=== PATIENT | female | born 1960 | race Caucasian/White ===

== ENCOUNTER 2021-08-29 09:23 | Emergency (ER) | payer BC ==
--- NOTE | 2021-08-29 10:40 | EDM.PDOC ---
ED HPI GENERAL MEDICAL PROBLEM - General Chief Complaint: Lower Extremity Injury/Pain Stated Complaint: POSSIBLE BLOOD CLOT Time Seen by Provider: 08/29/21 09:30 Source of Information: Reports: Patient History Limitations: Reports: No Limitations - History of Present Illness INITIAL COMMENTS - FREE TEXT/NARRATIVE: Patient presented to the ED because of left knee pain which started yesterday. The pain is sharp,10/10 and worse with ambulation. There is no recent trauma or injury. Right outer Knee Pain Score (Numeric/FACES): 9 - Related Data Allergies Allergy/AdvReac Type Severity Reaction Status Date / Time No Known Allergies Allergy Verified 08/29/21 09:31 Home Meds: Home Meds Calcium Carbonate/Vitamin D3 [Calcium 500 + Vit D 400] 1 tab PO DAILY 08/29/21 [History] Multivit-Min/Folic Acid/Vit K1 [Multi For Her 50 Plus Softgel] 1 tab PO DAILY 08/29/21 [History] Naproxen 500 mg PO BID PRN #30 tablet 08/29/21 [Rx] [place]-3 Fatty Acids/Fish Oil [Fish Oil 1,000 mg Capsule] 1 cap PO DAILY 08/29/21 [History] Rosuvastatin [Crestor] 5 mg PO BEDTIME 08/29/21 [History] Past Medical History Cardiovascular History: Reports: High Cholesterol - Infectious Disease History Infectious Disease History: Reports: Chicken Pox, Measles, Mumps, Novel Coronavirus - Past Surgical History Female Surgical History: Reports: Hysterectomy Social & Family History - Family History Family Medical History: No Pertinent Family History - Tobacco Use Tobacco Use Status *Q: Never Tobacco User Second Hand Smoke Exposure: No - Caffeine Use Caffeine Use: Reports: Soda - Recreational Drug Use Recreational Drug Use: No Review of Systems - Review of Systems Review Of Systems: See Below Constitutional: Reports: No Symptoms Eyes: Reports: No Symptoms Ears: Reports: No Symptoms Nose: Reports: No Symptoms Mouth/Throat: Reports: No Symptoms Respiratory: Reports: No Symptoms Cardiovascular: Reports: No Symptoms GI/Abdominal: Reports: No Symptoms Musculoskeletal: Reports: Other (left knee pain) Skin: Reports: No Symptoms Neurological: Reports: No Symptoms Psychiatric: Reports: No Symptoms ED EXAM, GENERAL - Physical Exam Exam: See Below Exam Limited By: No Limitations General Appearance: Alert, No Apparent Distress Eye Exam: Bilateral Eye: PERRL Ears: Normal External Exam, Normal Canal, Normal TMs Nose: Normal Inspection, Normal Mucosa, No Blood Throat/Mouth: Normal Inspection, Normal Lips, Normal Teeth, Normal Oropharynx, Normal Voice Head: Atraumatic, Normocephalic Neck: Normal Inspection, Supple, Non-Tender, Full Range of Motion Respiratory/Chest: No Respiratory Distress, Lungs Clear, Normal Breath Sounds, No Accessory Muscle Use, Chest Non-Tender Cardiovascular: Normal Peripheral Pulses, Regular Rate, Rhythm, No Edema, No Gallop, No JVD, No Murmur, No Rub GI/Abdominal: Normal Bowel Sounds, Soft, Non-Tender, No Organomegaly, No Disten tion, No Abnormal Bruit Back Exam: Normal Inspection, Full Range of Motion Extremities: Normal Inspection, Other (tenderness lateral aspect of left knee, effusion medial and lateral side.) Course - Vital Signs Text/Narrative:: [id number] Xray left knee Last Recorded V/S: Last Vital Signs Temp 36.4 C 08/29/21 09:25 Pulse 77 08/29/21 09:25 Resp 16 08/29/21 09:25 BP 147/68 H 08/29/21 09:25 Pulse Ox 96 08/29/21 09:25 - Orders/Labs/Meds Orders: Active Orders 24 hr Category Date Time Status Knee 3V Lt [CR] Stat Exams 08/29/21 09:39 Taken Labs: Laboratory Tests 08/29/21 Range/Units 10:45 D-Dimer, Quantitative 0.51 (0.0-0.59) mg/LFEU Departure - Departure Time of Disposition: 11:45 Disposition: Home, Self-Care 01 Condition: Good Clinical Impression: DJD (degenerative joint disease), Knee pain - Discharge Information Prescriptions: Naproxen 500 mg PO BID PRN #30 tablet PRN Reason: Pain Instructions: Acute Knee Pain, Adult, Arthritis, [id number] Referrals: Jumana Vazquez NP [Primary Care Provider] - Forms: ED Department Discharge Additional Instructions: Please read discharge instructions on DJD/Arthritis Apply ice or het whichever you prefer Naroxen 500 mg with tylenol 1000 mg twice daily as needed for pain Follow up as needed Sepsis Event Note (ED) - Evaluation Sepsis Screening Result: No Definite Risk - Focused Exam Vital Signs: Vital Signs Temp Pulse Resp BP Pulse Ox 08/29/21 09:25 36.4 C 77 16 147/68 H 96 - My Orders Last 24 Hours: My Active Orders 08/29/21 09:39 Knee 3V Lt [CR] Stat - Assessment/Plan Last 24 Hours: My Active Orders 08/29/21 09:39 Knee 3V Lt [CR] Stat
--- NOTE | 2021-08-29 13:28 | CR ---
LEFT KNEE INDICATION: Left knee pain, no known injury. FINDINGS: Three views of the left knee were obtained 08/29/21 - no comparisons. Moderate hypertrophic degenerative changes are noted at the patellofemoral joint with sclerosis and narrowing of the lateral patellofemoral joint space. Hypertrophic changes are noted laterally off the tibia and fibula and medially off the tibia as well as at the intercondylar spines. Femorotibial joint spaces appear to be fairly well maintained. Bone density appeared normal. No acute fracture or dislocation was suggested. There is some prominence at the suprapatellar bursa raising the question of a minimal knee joint effusion. IMPRESSION: Osteoarthritis with patellofemoral joint space loss and suggestion of small knee joint effusion on the left. MTDD
== END 2021-08-29 11:30 | disposition home or self-care (01) ==
LOC: FB.ED 09:23
DX: M19.90 Unspecified osteoarthritis, unspecified site (principal); E78.00 Pure hypercholesterolemia, unspecified; Z86.16 Personal history of COVID-19; Z79.899 Other long term (current) drug therapy
CPT/HCPCS: 36415; 73562-LT; 85379; 99283-25